=== PATIENT | female | born 1955 | race Caucasian/White ===

== ENCOUNTER 2024-05-23 01:59 | Inpatient (IN) | payer MEDICARE, OTHER ==
[2024-05-23] MEDS ORDERED: Ondansetron PF 4 MG/2 ML Vial IVP PRN (02:19)
[2024-05-23 02:26] VITALS: BMI 37.9
[2024-05-23] MEDS ORDERED: Morphine 4 MG/ML VIAL SLOW IVP PRN (03:23)
[2024-05-23] MEDS: hydrALAZINE 20 MG/ML VIAL SLOW IVP PRN (04:05)
[2024-05-23] MEDS: Acetaminophen 325 MG TAB PO PRN (06:13)
[2024-05-23] MEDS: fentaNYL 50 mcg/mL 1 mL Vial SLOW IVP SCH (06:14)
[2024-05-23] MEDS ORDERED: Fentanyl 100 MCG/2 ML VIAL SLOW IVP SCH (06:15)
[2024-05-23] MEDS: Sodium Chloride 0.9% 1,000 ML IV SCH (06:34)
[2024-05-23 07:06] LABS: #Basophils 0.07 10x3/uL (0.0-0.2); %Basophils 0.6 % (0.0-1.0); %Eosinophils 0.8 % (0.0-10.0); %Monocytes 8.7 % (0.0-10.0); %Neutrophils 75.5 % (42.0-75.0); Hematocrit 36.5 % (36.0-47.0); Hemoglobin 12.5 g/dL (12.0-16.0); Mean Corpuscular HGB CONC 34.2 g/dL (32.0-36.0); Mean Corpuscular Hemoglobin 29.1 pg (27.0-31.0); Mean Corpuscular Volume 84.9 fL (78.0-98.0); Mean Platelet Volume 9.7 fL (7.4-10.4); Platelet Count 340 10x3/uL (130-400); RBC Distribution Width 12.9 % (11.5-14.5)
[2024-05-23 07:19] LABS: PTT 31.3 sec (22.9-36.1); Prothrombin Time 13.3 sec (12.0-14.7)
[2024-05-23 07:40] LABS: ALT (SGPT) 22 U/L (8-55); AST (SGOT) 19 U/L (5-34); Albumin 3.6 g/dL (3.4-4.8); Alkaline Phosphatase 52 U/L (40-110); Anion Gap 15 mmol/L (10-20); BUN (Urea Nitrogen) 6 mg/dL (9.8-20.1); Bilirubin, Total 0.5 mg/dL (0.2-1.2); Calc. Creatinine Clearance 134 mL/min (70-130); Calcium 9.4 mg/dL (7.8-10.44); Carbon Dioxide 22 mmol/L (23-31); Cardiac Risk 2.8 (Less than 4.5); Chloride 90 mmol/L (98-107); Cholesterol 133 mg/dl (< 200 Desired); Estimated GFR 96; Globulin 3.3 g/dL (2.4-3.5); Glucose 117 mg/dL (80-115); HDL Cholesterol 48 mg/dL (>60 Neg Risk); LDL Cholesterol, Calculated 70 mg/dL; Potassium 3.8 mmol/L (3.5-5.1); Protein, Total 6.9 g/dL (5.8-8.1); Sodium 123 mmol/L (136-145); Triglycerides 77 mg/dL (Less than 150)
[2024-05-23] MEDS: Losartan 25 MG TAB PO SCH (08:11)
[2024-05-23] MEDS: Pantoprazole DR 40 MG TAB PO SCH (08:11)
[2024-05-23] MEDS: Hydrochlorothiazide 25 MG TAB PO SCH (08:12)
[2024-05-23] MEDS: Ketorolac Tromethamine 30 MG (1 mL) VIAL IVP PRN (10:05)
[2024-05-23] MEDS: Lactated Ringer's 1,000 ML IV SCH (14:18)
[2024-05-23 18:47] LABS: Anion Gap 15 mmol/L (10-20); BUN (Urea Nitrogen) 6 mg/dL (9.8-20.1); Carbon Dioxide 23 mmol/L (23-31); Chloride 92 mmol/L (98-107); Potassium 3.8 mmol/L (3.5-5.1); Sodium 126 mmol/L (136-145)
[2024-05-23 18:48] LABS: Calc. Creatinine Clearance 109 mL/min (70-130); Calcium 9.6 mg/dL (7.8-10.44); Estimated GFR 84; Glucose 119 mg/dL (80-115)
[2024-05-24] MEDS ORDERED: Non-Formulary Item 1 EACH (Spironolact/Hydrochlorothiazid [Spironolactone-Hctz 25-25 Tab] PO SCH (07:00)
[2024-05-24] MEDS ORDERED: Non-Formulary Item 1 EACH (Melatonin [Melatonin] 5 MG Tablet) PO PRN (07:00)
[2024-05-24] MEDS ORDERED: Melatonin 3 MG TAB PO PRN (07:16)
[2024-05-24] MEDS: Estradiol 1 MG TAB PO SCH (08:07)
[2024-05-24] MEDS: NIFEdipine XL 30 MG ER.TAB PO SCH ×2 (09:12→11:21)
[2024-05-24] MEDS ORDERED: Labetalol HCl 100 MG/20 ML VIAL SLOW IVP PRN (12:11)
[2024-05-24 12:41] LABS: #Basophils 0.06 10x3/uL (0.0-0.2); %Basophils 0.5 % (0.0-1.0); %Eosinophils 1.4 % (0.0-10.0); %Lymphocytes 15.3 % (21.0-51.0); %Monocytes 9.2 % (0.0-10.0); Hematocrit 37.4 % (36.0-47.0); Hemoglobin 12.9 g/dL (12.0-16.0); Mean Corpuscular HGB CONC 34.5 g/dL (32.0-36.0); Mean Corpuscular Hemoglobin 29.1 pg (27.0-31.0); Mean Corpuscular Volume 84.4 fL (78.0-98.0); Mean Platelet Volume 9.8 fL (7.4-10.4); Platelet Count 373 10x3/uL (130-400); RBC Distribution Width 13.2 % (11.5-14.5); Red Blood Cell (RBC) Count 4.43 mill/uL (4.20-5.40)
[2024-05-24 13:06] LABS: ALT (SGPT) 20 U/L (8-55); AST (SGOT) 20 U/L (5-34); Albumin 3.7 g/dL (3.4-4.8); Alkaline Phosphatase 52 U/L (40-110); Anion Gap 15 mmol/L (10-20); BUN (Urea Nitrogen) 6 mg/dL (9.8-20.1); Bilirubin, Total 0.5 mg/dL (0.2-1.2); Calc. Creatinine Clearance 117 mL/min (70-130); Calcium 9.7 mg/dL (7.8-10.44); Carbon Dioxide 23 mmol/L (23-31); Chloride 90 mmol/L (98-107); Estimated GFR 91; Globulin 3.5 g/dL (2.4-3.5); Glucose 104 mg/dL (80-115); Potassium 3.8 mmol/L (3.5-5.1); Protein, Total 7.2 g/dL (5.8-8.1); Sodium 124 mmol/L (136-145)
[2024-05-24 15:56] VITALS: BP 141/89; TEMP 98
[2024-05-24] MEDS ORDERED: Simvastatin 10 MG TAB PO SCH (21:00)
[2024-05-24] MEDS ORDERED: Gabapentin 300 MG CAP PO SCH (21:00)
[2024-05-24] MEDS ORDERED: Pravastatin Sodium 20 MG TAB PO SCH (21:00)
[2024-05-26] MEDS ORDERED: FLU (Fluad Triv) TS24-25 (65UP)/MF59C/PF 45 MCG/0.5 ML Syringe IM ONE (09:00)
== END 2024-05-24 17:00 | disposition home or self-care (01) | DRG 439 ==
LOC: INTOOBSV 02:10 → T4-B 02:10 → OBSVTOIN 09:57
PROVIDERS: ADMIT Family Medicine; ATTEND Family Medicine
DX: K85.90 Acute pancreatitis without necrosis or infection, unspecified (principal); E87.1 Hypo-osmolality and hyponatremia; K74.60 Unspecified cirrhosis of liver; N20.0 Calculus of kidney; I10 Essential (primary) hypertension; E78.5 Hyperlipidemia, unspecified; F41.9 Anxiety disorder, unspecified; J30.2 Other seasonal allergic rhinitis; Z88.8 Allergy status to other drugs, medicaments and biological substances; Z79.82 Long term (current) use of aspirin; Z79.899 Other long term (current) drug therapy; K21.9 Gastro-esophageal reflux disease without esophagitis; Z90.89 Acquired absence of other organs; Z90.710 Acquired absence of both cervix and uterus; Z90.49 Acquired absence of other specified parts of digestive tract; Z98.890 Other specified postprocedural states; Z87.891 Personal history of nicotine dependence
CPT/HCPCS: 36415; 80053; 80061; 83930; 83935; 84300; 85025; 85610; 85730; 96374; G0378; J0360; J1885; J3010; J7030; J7120